=== PATIENT | female | born 1995 | race Caucasian/White ===

== ENCOUNTER → 2017-05-26 09:20 | Emergency (ER) | payer OTHER ==
[2017-05-26 10:24] LABS: Hematocrit 44 % (35-47); Hemoglobin 14.9 g/dl (12.0-16.0); Mean Corpuscular HGB Conc 34 g/dl (31-36); Mean Corpuscular Hemoglobin 31 pg (27-31); Mean Corpuscular Volume 90 fL (80-97); Mean Platelet Volume 10 um3 (7.4-10.4); Red Blood Count 4.89 10^6/ul (4.0-5.4); Red Cell Distribution Width 13 % (10.5-15); White Blood Count 7.5 10^3/ul (3.5-10.8)
[2017-05-26 10:42] LABS: Albumin 4.7 g/dL (3.2-5.2); BUN/Creatinine Ratio 16.5 (8-20); Calcium 9.8 mg/dL (8.6-10.3); EGFR Non-African American 89.4 (>60); Globulin 2.7 g/dL (2-4); Potassium 3.6 mmol/L (3.5-5.0); Total Bilirubin 0.6 mg/dL (0.2-1.0); Total Protein 7.4 g/dL (6.4-8.9)
[2017-05-26 10:43] LABS: Troponin I 0.01 ng/mL (<0.04)
[2017-05-26 10:51] LABS: TSH (Thyroid Stimulating Horm) 3.66 mcIU/mL (0.34-5.60)
--- NOTE | 2017-05-26 10:59 | ED ---
Syncope/Near Syncope - HPI Summary HPI Summary: 22F presents with syncope today. She was at [facility] and talking about acne when she passed out. She has a history of this. Those that witness said her neck arched so they thought she had a seizure. She has no history of seizures or any tonic clonic movement with the syncope. She has had tilt table and stress done in past for this and was normal. She states before she passed out she felt tunnel vision and lightheaded but this has all resolved. She denies any fever, chest pain, or SOB. She denies any injury with the passing out. - History Of Current Complaint Chief Complaint: EDSyncope Time Seen by Provider: 05/26/17 09:48 - Allergies/Home Medications Allergies/Adverse Reactions: Allergies Allergy/AdvReac Type Severity Reaction Status Date / Time No Known Allergies Allergy Verified 05/26/17 09:26 PMH/Surg Hx/FS Hx/Imm Hx Endocrine/Hematology History: Denies: Hx Anticoagulant Therapy Neurological History: Reports: Other Neuro Impairments/Disorders - syncope Infectious Disease History: No Infectious Disease History: Denies: Traveled Outside the [place] in Last 30 Days - Family History Known Family History: Positive: Other - syncope - Social History Alcohol Use: None Substance Use Type: Reports: None Smoking Status (MU): Never Smoked Tobacco Review of Systems Negative: Fever Negative: Chest Pain Negative: Shortness Of Breath Positive: Syncope All Other Systems Reviewed And Are Negative: Yes Physical Exam Triage Information Reviewed: Yes Vital Signs On Initial Exam: Initial Vitals Temp Pulse Resp BP Pulse Ox 98.2 F 65 16 120/75 100 05/26/17 09:21 05/26/17 09:21 05/26/17 09:21 05/26/17 09:21 05/26/17 09:21 Vital Signs Reviewed: Yes Appearance: Positive: Well-Appearing Skin: Positive: Warm, Dry Head/Face: Positive: Normal Head/Face Inspection Eyes: Positive: Normal, Conjunctiva Clear ENT: Positive: Normal ENT inspection, Pharynx normal, TMs normal Respiratory/Lung Sounds: Positive: Clear to Auscultation, Breath Sounds Present Cardiovascular: Positive: Normal, RRR Neurological: Positive: Sensory/Motor Intact, Alert, Oriented to Person Place, Time, CN Intact II-III - Roger Coma Scale Coma Scale Total: 15 Diagnostics - Vital Signs Vital Signs Temp Pulse Resp BP Pulse Ox 05/26/17 10:30 64 13 105/60 98 05/26/17 10:00 16 109/59 05/26/17 09:42 62 100 05/26/17 09:40 106/65 05/26/17 09:21 98.2 F 65 16 120/75 100 - Laboratory Lab Results: Lab Results 05/26/17 05/26/17 Range/Units 09:30 09:30 WBC 7.5 (3.5-10.8) 10^3/ul RBC 4.89 (4.0-5.4) 10^6/ul Hgb 14.9 (12.0-16.0) g/dl Hct 44 (35-47) % MCV 90 (80-97) fL MCH 31 (27-31) pg MCHC 34 (31-36) g/dl RDW 13 (10.5-15) % Plt Count 228 (150-450) 10^3/ul MPV 10 (7.4-10.4) um3 Neut % (Auto) 66.0 (38-83) % Lymph % (Auto) 23.0 L (25-47) % Kay % (Auto) 8.8 (1-9) % Eos % (Auto) 1.3 (0-6) % Baso % (Auto) 0.9 (0-2) % Absolute Neuts (auto) 5.0 (1.5-7.7) 10^3/ul Absolute Lymphs (auto) 1.7 (1.0-4.8) 10^3/ul Absolute Monos (auto) 0.7 (0-0.8) 10^3/ul Absolute Eos (auto) 0.1 (0-0.6) 10^3/ul Absolute Basos (auto) 0.1 (0-0.2) 10^3/ul Absolute Nucleated RBC 0 10^3/ul Nucleated RBC % 0 Sodium 133 (133-145) mmol/L Potassium 3.6 (3.5-5.0) mmol/L Chloride 104 (101-111) mmol/L Carbon Dioxide 26 (22-32) mmol/L Anion Gap 3 (2-11) mmol/L BUN 13 (6-24) mg/dL Creatinine 0.79 (0.51-0.95) mg/dL Est GFR ( Amer) 115.0 (>60) Est GFR (Non-Af Amer) 89.4 (>60) BUN/Creatinine Ratio 16.5 (8-20) Glucose 92 (70-100) mg/dL Calcium 9.8 (8.6-10.3) mg/dL Magnesium 2.0 (1.9-2.7) mg/dL Total Bilirubin 0.60 (0.2-1.0) mg/dL AST 16 (13-39) U/L ALT 13 (7-52) U/L Alkaline Phosphatase 60 (34-104) U/L Troponin I 0.01 (<0.04) ng/mL Total Protein 7.4 (6.4-8.9) g/dL Albumin 4.7 (3.2-5.2) g/dL Globulin 2.7 (2-4) g/dL Albumin/Globulin Ratio 1.7 (1-3) TSH 3.66 (0.34-5.60) mcIU/mL Result Diagrams: 05/26/17 09:30 05/26/17 09:30 Lab Statement: Any lab studies that have been ordered have been reviewed, and results considered in the medical decision making process. - EKG 1 Cardiac Rate: NL EKG Rhythm: Sinus Rhythm ST Segment: Normal Ectopy: None Course/Dx Course Of Treatment: 22F presents with syncope today. She was at [facility] and talking about acne when she passed out. She has a history of this. Those that witness said her neck arched so they thought she had a seizure. She has no history of seizures or any tonic clonic movement with the syncope. She has had tilt table and stress done in past for this and was normal. She states before she passed out she felt tunnel vision and lightheaded but this has all resolved. She denies any fever, chest pain, or SOB. Normal neuro exam. do not suspect seizure as this is not typical seizure movement. EKG and labs normal. no further work up needed as patient has had all this in past. patient understands and agrees with plan. - Diagnoses Differential Diagnosis/HQI/PQRI: Positive: Dysrhythmia, Hypoglycemia, Hypovolemia, Vasovagal Episode Provider Diagnoses: Syncope Discharge - Discharge Plan Condition: Good Disposition: HOME Patient Education Materials: Syncope (ED) Referrals: HARRISON Prather [Primary Care Provider] - Additional Instructions: Follow up with primary within a week Return to ED if develop any new or worsening symptoms
[2017-05-26 11:19] VITALS: BP 104/58
== END | disposition home or self-care (01) ==
LOC: ED 09:20
DX: R55 Syncope and collapse (principal)
CPT/HCPCS: 36415; 80053; 83735; 84443; 84484; 85025; 93005; 99282

== ENCOUNTER 2017-10-23 15:13 | Inpatient (IN) | payer OTHER ==
[2017-10-23 16:09] LABS: Hematocrit 45 % (35-47); Hemoglobin 15.5 g/dl (12.0-16.0); Mean Corpuscular HGB Conc 34 g/dl (31-36); Mean Corpuscular Hemoglobin 31 pg (27-31); Mean Corpuscular Volume 91 fL (80-97); Mean Platelet Volume 9 um3 (7.4-10.4); Red Blood Count 5.01 10^6/ul (4.0-5.4); Red Cell Distribution Width 13 % (10.5-15); White Blood Count 9.8 10^3/ul (3.5-10.8)
[2017-10-23 16:19] LABS: Urine Bilirubin Negative (Negative); Urine Glucose Negative (Negative); Urine Nitrite Negative (Negative)
[2017-10-23 16:35] LABS: ALT 16 U/L (7-52); AST 17 U/L (13-39); Albumin 4.8 g/dL (3.2-5.2); Alkaline Phosphatase 63 U/L (34-104); Anion Gap 8 mmol/L (2-11); BUN/Creatinine Ratio 14.9 (8-20); Blood Urea Nitrogen 13 mg/dL (6-24); CO2 Carbon Dioxide 26 mmol/L (22-32); Calcium 9.8 mg/dL (8.6-10.3); Chloride 102 mmol/L (101-111); EGFR African American 102.9 (>60); Glucose 87 mg/dL (70-100); Potassium 3.7 mmol/L (3.5-5.0); Sodium 136 mmol/L (133-145); Total Protein 7.8 g/dL (6.4-8.9)
[2017-10-23 16:39] LABS: Acetaminophen < 15 mcg/mL; Alcohol < 10 mg/dL (<10); Salicylate < 2.50 mg/dL (<30)
[2017-10-23 16:39] LABS: Benzodiazepine Urine Screen None Detected (None Detect)
[2017-10-23 16:43] LABS: TSH (Thyroid Stimulating Horm) 1.82 mcIU/mL (0.34-5.60)
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
[2017-10-24] MEDS ORDERED: Acetaminophen TAB* 325 MG PO PRN (02:41)
[2017-10-24] MEDS ORDERED: Al Hydrox/Mg Hydrox/Simet LIQ* 30 ML UDC PO PRN (02:41)
[2017-10-24] MEDS ORDERED: LORazepam TAB(*) 1 MG PO PRN (02:47)
[2017-10-24] MEDS ORDERED: Influenza VAC *QUAD* 2017-18* 0.5 ML SYRINGE IM ONE (09:00)
[2017-10-24] MEDS: DULoxetine DR CAP* 30 MG CAP.DR PO SCH (09:00)
[2017-10-24] MEDS ORDERED: Pneumococcal *Vac Polyvalent 0.5 ML VIAL IM ONE (09:00)
[2017-10-24] MEDS: Vitamin THERAPEUTIC TAB PO SCH (09:01)
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
[2017-10-25] MEDS: Vitamin THERAPEUTIC TAB PO SCH (08:45)
[2017-10-25] MEDS: DULoxetine DR CAP* 30 MG CAP.DR PO SCH (08:45)
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
[2017-10-26 08:38] VITALS: BP 128/76
[2017-10-26] MEDS: DULoxetine DR CAP* 30 MG CAP.DR PO SCH (08:56)
[2017-10-26] MEDS: Vitamin THERAPEUTIC TAB PO SCH (08:56)
--- NOTE | 2017-10-26 13:13 | PN ---
MHU: Group Therapy Note - Service Type Service Type: 20283 Group Psychotherapy - Cognitive Behavioral Group Therapy ( CBT):Patient was attentive and participatory in CBT programming this morning, and remained in good behavioral control. Patient expressed positive insights regarding relevant treatment interventions and goals.
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
== END 2017-10-26 13:00 | disposition home or self-care (01) | DRG 885 ==
LOC: ED 15:13 → BSU 23:16
PROVIDERS: ADMIT Psychiatry & Neurology Psychiatry; ATTEND Psychiatry & Neurology Psychiatry
PROC: GZHZZZZ Group Psychotherapy (ICD-10-PCS; principal; 2017-10-23)
DX: F32.2 Major depressive disorder, single episode, severe without psychotic features (principal); F43.10 Post-traumatic stress disorder, unspecified; R55 Syncope and collapse; G43.909 Migraine, unspecified, not intractable, without status migrainosus; Z91.410 Personal history of adult physical and sexual abuse; Z81.8 Family history of other mental and behavioral disorders; Z81.1 Family history of alcohol abuse and dependence; Z72.89 Other problems related to lifestyle; T50.992A Poisoning by other drugs, medicaments and biological substances, intentional self-harm, initial encounter; Y92.9 Unspecified place or not applicable
CPT/HCPCS: 36415; 80053; 80307; 80320; 80329; 81003; 84443; 85025; 90686; 90853; 93005; 99222; 99231; 99238; A9270-GY; G0480